=== PATIENT | male | born 1970 | race Caucasian/White ===

== ENCOUNTER 2018-09-21 13:47 | Emergency (ER) | payer MEDICAID, MEDICARE ==
[~2018-09-21] VITALS: Ht 180.3 cm; Wt 81.8 kg
[~2018-09-21 13:47] MED LIST: AMPH12.52 PO; EFAV1TAB4 PO; ESCI20TA29 PO; LITH300T16 PO; LORA-512 PO; VERA120T7 PO; WEL100T PO
[2018-09-21 15:12] LABS: CLARITY,URINE CLEAR (Clear); COLOR,URINE YELLOW (Yellow); GLUCOSE, URINE NEGATIVE (Neg); KETONES,URINE NEGATIVE (Neg); LEUKOCYTE ESTERASE ,URINE NEGATIVE (Neg); NITRITES, URINE NEGATIVE (Neg); OCCULT BLOOD,URINE NEGATIVE (Neg); PROTEIN,URINE NEGATIVE (Neg); UA COLLECTION TYPE CLN CATCH MIDSTREAM; UROBILINOGEN,URINE 0.2 E.U/dL (0.2-1.0)
[2018-09-21 15:20] LABS: BASOPHILS # (AUTO) 0.1 X10'3 (0-0.2); BASOPHILS % (AUTO) 1.1 % (0-1); EOSINOPHILS # (AUTO) 0.1 X10'3 (0-0.9); HEMATOCRIT 45.5 % (42.0-52.0); HEMOGLOBIN 15.4 g/dl (14.0-17.9); LYMPHOCYTES # (AUTO) 1.6 X10'3 (1.1-4.8); MEAN CORPUSCULAR HEMOGLOBIN 33.8 PG (27.0-31.0); MEAN CORPUSCULAR HGB CONC 33.9 g/dL (33.0-36.5); MEAN CORPUSCULAR VOLUME 99.8 FL (78-98); MEAN PLATELET VOLUME 8.1 FL (7.4-10.4); MONOCYTES # (AUTO) 0.3 X10'3 (0-0.9); MONOCYTES % (AUTO) 3.4 % (2-12); NEUTROPHILS # (AUTO) 7.3 X10'3 (1.8-7.7); NEUTROPHILS % (AUTO) 77.5 % (42-75); PLATELET COUNT 243 X10'3 (140-440); RED BLOOD COUNT 4.56 X10'6 (4.70-6.10); RED CELL DISTRIBUTION WIDTH 13.1 % (11.5-14.5); WHITE BLOOD COUNT 9.4 X10'3 (4.5-11.0)
[2018-09-21 15:34] LABS: ALANINE AMINOTRANSFERASE 29 U/L (12-78); ALBUMIN 4.1 G/DL (3.4-5.0); ALKALINE PHOSPHATASE 63 IU/L (46-116); ANION GAP 6 (8-16); ASPARTATE AMINO TRANSFERASE 20 U/L (10-37); BILIRUBIN,TOTAL 0.5 MG/DL (0.1-1.0); BLOOD UREA NITROGEN 12 MG/DL (7-18); BUN/CREATININE RATIO 10.3 (5.4-32.0); CALCIUM 9.6 MG/DL (8.5-10.1); CHLORIDE 103 MMOL/L (99-107); CREATININE 1.17 MG/DL (0.60-1.10); GLUCOSE 116 MG/DL (70-104); LIPASE 121 U/L (73-393); POTASSIUM 4.4 MMOL/L (3.5-5.1); SODIUM 138 MMOL/L (135-145); TOTAL CARBON DIOXIDE 28.6 MMOL/L (24-32); TOTAL PROTEIN 8.3 G/DL (6.4-8.2); eGFR 67 ML/MIN
[2018-09-21] MEDS ORDERED: metoclopramide 5 mg/ml inj IV ONE (15:45)
[2018-09-21] MEDS ORDERED: diphenhydrAMINE 50 mg/ml inj IV ONE (15:45)
[2018-09-21] MEDS ORDERED: normal saline 1000ML IV soln IVB ONE ×2 (15:45)
[2018-09-21] MEDS ORDERED: LORazepam 2 mg/ml vial IV ONE (15:45)
[2018-09-21] MEDS ORDERED: ONDA4TAB12 PO (16:22)
[2018-09-21 18:10] VITALS: BP 125/88
== END 2018-09-21 18:00 | disposition home or self-care (01) ==
LOC: ER 13:48
DX: R11.2 Nausea with vomiting, unspecified (principal); F17.210 Nicotine dependence, cigarettes, uncomplicated; F12.90 Cannabis use, unspecified, uncomplicated; Z79.899 Other long term (current) drug therapy
CPT/HCPCS: 36415; 80053; 81003; 83690; 85025; 85610; 96374; 96375; 99283; J1200; J2765; J7030

== ENCOUNTER 2021-10-08 18:41 | Emergency (ER) | payer MEDICARE ==
[~2021-10-08] VITALS: Ht 180.3 cm; Wt 79.5 kg
[~2021-10-08 18:41] MED LIST changes: +ONDA4TAB12 PO; +VERA120T19 PO; -VERA120T7 PO; +iohexol 350MG/ML 100ml bottle IV ONE
[2021-10-08] MEDS ORDERED: ondansetron/PF 4mg/2ml inj IV ONE (19:25)
[2021-10-08] MEDS ORDERED: morphine 10mg/ml inj. IV ONE (19:25)
--- NOTE | 2021-10-08 19:50 | NUR ---
Patient in CT
[2021-10-08 19:57] LABS: BASOPHILS # (AUTO) 0.1 X10'3 (0-0.2); BASOPHILS % (AUTO) 0.9 % (0-1); EOSINOPHILS # (AUTO) 0.1 X10'3 (0-0.9); EOSINOPHILS % (AUTO) 0.8 % (0-6); HEMATOCRIT 44.5 % (42.0-52.0); LYMPHOCYTES # (AUTO) 1.9 X10'3 (1.1-4.8); LYMPHOCYTES % (AUTO) 13.2 % (21-51); MEAN CORPUSCULAR HEMOGLOBIN 32.5 PG (27.0-31.0); MEAN CORPUSCULAR HGB CONC 33.7 g/dL (33.0-36.5); MEAN CORPUSCULAR VOLUME 96.6 FL (78-98); MEAN PLATELET VOLUME 7.9 FL (7.4-10.4); MONOCYTES # (AUTO) 0.7 X10'3 (0-0.9); MONOCYTES % (AUTO) 4.8 % (2-12); NEUTROPHILS # (AUTO) 11.4 X10'3 (1.8-7.7); NEUTROPHILS % (AUTO) 80.3 % (42-75); PLATELET COUNT 256 X10'3 (140-440); RED BLOOD COUNT 4.61 X10'6 (4.70-6.10); WHITE BLOOD COUNT 14.2 X10'3 (4.5-11.0)
[2021-10-08 20:13] LABS: ALANINE AMINOTRANSFERASE 47 U/L (12-78); ALBUMIN 3.8 G/DL (3.4-5.0); ALBUMIN/GLOBULIN RATIO 0.8 (1.1-1.5); ALKALINE PHOSPHATASE 77 IU/L (46-116); ANION GAP 9 (8-16); ASPARTATE AMINO TRANSFERASE 56 U/L (10-37); BILIRUBIN,TOTAL 0.4 MG/DL (0.1-1.0); BLOOD UREA NITROGEN 15 MG/DL (7-18); BUN/CREATININE RATIO 12.5 (5.4-32.0); CALCIUM 9.2 MG/DL (8.5-10.1); CHLORIDE 102 MMOL/L (99-107); GLUCOSE 101 MG/DL (70-104); POTASSIUM 4.4 MMOL/L (3.5-5.1); SODIUM 138 MMOL/L (135-145); TOTAL CARBON DIOXIDE 27.1 MMOL/L (24-32); TOTAL PROTEIN 8.5 G/DL (6.4-8.2); eGFR 64 ML/MIN
[2021-10-08 20:18] LABS: CREATINE KINASE 384 U/L (39-308); ETHANOL < 0.010 GM/DL (0.0-0.010)
[2021-10-08] MEDS ORDERED: morphine 4 MG/ML inj SYRINge IV ONE (21:45)
[2021-10-09] MEDS ORDERED: CYCL-394 PO (00:44)
[2021-10-09] MEDS ORDERED: MORP15TA PO (00:44)
[2021-10-09] MEDS ORDERED: cyclobenzaprine 10mg tablet PO ONE (00:50)
[2021-10-09] MEDS ORDERED: morphine 4 MG/ML inj SYRINge IV ONE (00:50)
[2021-10-09] MEDS ORDERED: bacitracin 15gm ointment TP ONE (01:35)
[2021-10-09 01:45] VITALS: BP 124/81
== END 2021-10-09 01:49 | disposition home or self-care (01) ==
LOC: ER 18:43
DX: S32.049A Unspecified fracture of fourth lumbar vertebra, initial encounter for closed fracture (principal); S01.01XA Laceration without foreign body of scalp, initial encounter; S70.01XA Contusion of right hip, initial encounter; S80.02XA Contusion of left knee, initial encounter; S70.312A Abrasion, left thigh, initial encounter; S80.211A Abrasion, right knee, initial encounter; R07.89 Other chest pain; Z21 Asymptomatic human immunodeficiency virus [HIV] infection status; F12.90 Cannabis use, unspecified, uncomplicated; Z72.89 Other problems related to lifestyle; Z79.899 Other long term (current) drug therapy; W22.11XA Striking against or struck by driver side automobile airbag, initial encounter; Y93.89 Activity, other specified; Y92.89 Other specified places as the place of occurrence of the external cause; Y99.8 Other external cause status; S09.90XA Unspecified injury of head, initial encounter
CPT/HCPCS: 36415; 70450; 70486; 71260; 72125; 74177; 80053; 80320; 82550; 84484; 85025; 93005; 96374; 96375; 96376; 99285; J2270; J2274; J2405; J3490; L0172; Q9967; A6258

== ENCOUNTER 2023-04-12 02:33 | Observation (INO) | payer MEDICAID, MEDICARE ==
[~2023-04-12] VITALS: Ht 180.3 cm; Wt 93.1 kg
[~2023-04-12 02:33] MED LIST changes: -iohexol 350MG/ML 100ml bottle IV ONE
[2023-04-12] MEDS: normal saline 1000ml 1,000 ML IV ONE (03:29)
[2023-04-12] MEDS: diltiazem 5mg/ml 5ml inj. IV ONE ×3 (03:29→05:05)
[2023-04-12] MEDS: aspirin 81mg tab.chew PO ONE (03:29)
[2023-04-12 03:58] LABS: PROTHROMBIN TIME 10.3 SECONDS (9.0-12.0)
[2023-04-12 04:00] LABS: BASOPHILS # (AUTO) 0.1 X10'3 (0-0.2); BASOPHILS % (AUTO) 0.8 % (0-1); EOSINOPHILS # (AUTO) 0.2 X10'3 (0-0.9); EOSINOPHILS % (AUTO) 1.7 % (0-6); HEMATOCRIT 40.3 % (42.0-52.0); HEMOGLOBIN 13.5 g/dl (14.0-17.9); LYMPHOCYTES # (AUTO) 2.7 X10'3 (1.1-4.8); LYMPHOCYTES % (AUTO) 26.1 % (21-51); MEAN CORPUSCULAR HEMOGLOBIN 30.6 PG (27.0-31.0); MEAN CORPUSCULAR HGB CONC 33.4 g/dL (33.0-36.5); MEAN CORPUSCULAR VOLUME 91.6 FL (78-98); MEAN PLATELET VOLUME 8.1 FL (7.4-10.4); MONOCYTES # (AUTO) 0.9 X10'3 (0-0.9); MONOCYTES % (AUTO) 8.8 % (2-12); NEUTROPHILS # (AUTO) 6.5 X10'3 (1.8-7.7); NEUTROPHILS % (AUTO) 62.6 % (42-75); PLATELET COUNT 236 X10'3 (140-440); RED CELL DISTRIBUTION WIDTH 14.9 % (11.5-14.5); WHITE BLOOD COUNT 10.3 X10'3 (4.5-11.0)
[2023-04-12 04:18] LABS: ALBUMIN 3.2 G/DL (3.4-5.0); ANION GAP 11 (8-16); BLOOD UREA NITROGEN 14 MG/DL (7-18); BUN/CREATININE RATIO 11.9 (10.0-20.0); CALCIUM 8.8 MG/DL (8.5-10.1); CHLORIDE 106 MMOL/L (99-107); CREATININE 1.18 MG/DL (0.60-1.10); GLUCOSE 170 MG/DL (70-104); MAGNESIUM 2.2 MG/DL (1.5-2.4); POTASSIUM 3.9 MMOL/L (3.5-5.1); PRO BRAIN NATRIURETIC PEPTIDE 400 PG/ML (0-125); SODIUM 140 MMOL/L (135-145); TOTAL CARBON DIOXIDE 22.8 MMOL/L (24-32); eCRCL 77 ML/MIN; eGFR 65 ML/MIN
[2023-04-12] MEDS: acetaminophen 325mg tablet PO ONE (04:19)
[2023-04-12] MEDS: diltiazem-NS 100mg/100ml 100 ML IV SCH (04:20)
[2023-04-12] MEDS: ketorolac trometh. 30mg/ml inj. IV ONE (04:56)
[2023-04-12] MEDS: phenylephrine 10mg/ml inj. -priapism dosing SQ ONE (06:00)
[2023-04-12] MEDS: LIDOCAINE 1%/EPI 1:100,000 inj. 10 ML multi-dose vial IJ ONE (06:00)
[2023-04-12] MEDS: HYDROmorphone 1 mg/ml syringe IV ONE (06:54)
[2023-04-12] MEDS: metoprolol tartrate 50mg tablet PO STA (07:33)
[2023-04-12] MEDS ORDERED: potassium Cl 20 mEq SR tablet PO PRN ×2 (09:50)
[2023-04-12] MEDS ORDERED: LORazepam 1 MG tablet PO PRN (09:50)
[2023-04-12] MEDS ORDERED: acetaminophen 325mg tablet PO PRN (09:50)
[2023-04-12] MEDS ORDERED: potassium Cl 40MEQ/1/2NS 520ml 520 ML IV PRN (09:50)
[2023-04-12] MEDS ORDERED: LORazepam 2 mg/ml vial IV PRN (09:50)
[2023-04-12] MEDS ORDERED: magnesium hydroxide 30ml (MOM) UD suspension PO PRN (09:50)
[2023-04-12] MEDS: normal saline 1000ml 1,000 ML IV SCH (09:50)
[2023-04-12] MEDS ORDERED: magnesium 4gm in 100ml NS 100 ML IV PRN (09:50)
[2023-04-12] MEDS ORDERED: ondansetron/PF 4mg/2ml inj IV PRN (09:50)
[2023-04-12] MEDS ORDERED: magnesium 2GM in 50ml NS 50 ML IV PRN (09:50)
[2023-04-12] MEDS ORDERED: HYDROcodone/acetaminophen 5mg/325mg tablet PO PRN (09:50)
[2023-04-12] MEDS ORDERED: bisacodyl 10mg suppository rectal RC PRN (09:50)
[2023-04-12] MEDS ORDERED: mag hydrox/Alum hydrox/simeth 30ml oral suspension PO PRN (09:50)
[2023-04-12] MEDS ORDERED: magnesium Cl slow-release 64mg tablet PO PRN (09:50)
[2023-04-12 10:42] LABS: CHOL/HDL RATIO 3.5 (0.00-4.99); CHOLESTEROL 136 MG/DL (0-200); HDL CHOLESTEROL 39 MG/DL (35-60); LDL CHOLESTEROL 77 MG/DL (50-100); POTASSIUM 4.1 MMOL/L (3.5-5.1); TRIGLYCERIDES 90 MG/DL (20-135)
[2023-04-12 10:54] LABS: APTT 27 SECONDS (22-32); PROTHROMBIN TIME 10.4 SECONDS (9.0-12.0)
[2023-04-12 11:02] LABS: THYROID STIMULATING HORMONE 1.85 ulU/ml (0.34-4.50)
[2023-04-12] MEDS: HYDROcodone/acetaminophen 10/325mg tab PO PRN (14:36)
[2023-04-12] MEDS: HYDROmorphone inj. 0.5 MG/0.5 ML DISP.SYRIN IV PRN (15:43)
[2023-04-12] MEDS: K and/or MAG REPLACEMENT MC SCH (19:33)
[2023-04-12] MEDS: docusate sod 100mg capsule PO SCH (19:56)
[2023-04-12] MEDS: metoprolol tartrate 50mg tablet PO SCH (19:57)
[2023-04-12] MEDS ORDERED: temazepam 15mg capsule PO PRN (21:00)
[2023-04-12 22:50] VITALS: BP 108/54; PULSE 72; RESP 17; TEMP 98.5; O2SAT 93
[2023-04-13 06:00] VITALS: BP 92/56; PULSE 91; RESP 11; TEMP 99.9; O2SAT 96
[2023-04-13] MEDS: acetaminophen 325mg tablet PO PRN (06:30)
[2023-04-13 07:32] LABS: HEMATOCRIT 38.2 % (42.0-52.0); HEMOGLOBIN 12.6 g/dl (14.0-17.9); MEAN CORPUSCULAR HEMOGLOBIN 30.8 PG (27.0-31.0); MEAN CORPUSCULAR HGB CONC 32.9 g/dL (33.0-36.5); MEAN CORPUSCULAR VOLUME 93.4 FL (78-98); MEAN PLATELET VOLUME 8.4 FL (7.4-10.4); RED BLOOD COUNT 4.09 X10'6 (4.70-6.10); RED CELL DISTRIBUTION WIDTH 14.8 % (11.5-14.5); WHITE BLOOD COUNT 10.1 X10'3 (4.5-11.0)
[2023-04-13 07:45] LABS: ALBUMIN 3.2 G/DL (3.4-5.0); ANION GAP 9 (8-16); BLOOD UREA NITROGEN 19 MG/DL (7-18); BUN/CREATININE RATIO 15.7 (10.0-20.0); CALCIUM 9.3 MG/DL (8.5-10.1); CHLORIDE 104 MMOL/L (99-107); CREATININE 1.21 MG/DL (0.60-1.10); GLUCOSE 111 MG/DL (70-104); POTASSIUM 4.7 MMOL/L (3.5-5.1); SODIUM 136 MMOL/L (135-145); TOTAL CARBON DIOXIDE 22.9 MMOL/L (24-32); eCRCL 75 ML/MIN; eGFR 63 ML/MIN
[2023-04-13 08:39] LABS: PLATELET COUNT 107 X10'3 (140-440)
[2023-04-13 11:00] VITALS: BP 114/62; PULSE 80; RESP 15; TEMP 97.5; O2SAT 98
[2023-04-13] MEDS ORDERED: HYDR-3972 PO (11:46)
[2023-04-13] MEDS ORDERED: METO50TA16 PO (11:46)
== END 2023-04-13 13:29 | disposition home or self-care (01) ==
LOC: ER 02:34 → ED HOLD 09:56 → PCU 3S 22:50
PROVIDERS: ADMIT Family Medicine; ATTEND Family Medicine
DX: I48.20 Chronic atrial fibrillation, unspecified (principal); N48.30 Priapism, unspecified; F15.10 Other stimulant abuse, uncomplicated; N17.0 Acute kidney failure with tubular necrosis; J44.9 Chronic obstructive pulmonary disease, unspecified; I10 Essential (primary) hypertension; F32.A Depression, unspecified; Z79.899 Other long term (current) drug therapy
CPT/HCPCS: 36415; 71045; 80048; 80061; 83735; 83880; 84132; 84443; 84484; 85025; 85027; 85610; 85730; 93005; 93306; 96361; 96365; 96366; 96375; 96376; 99291; 99292; A6258; G0378; J1170; J1885; J3490; J7030

== ENCOUNTER 2024-12-22 01:41 | Emergency (ER) | payer MEDICAID, OTHER ==
[~2024-12-22] VITALS: Ht 180.3 cm; Wt 90.0 kg
[~2024-12-22 01:41] MED LIST changes: +METO50TA16 PO; +ONDA-243 PO; -ONDA4TAB12 PO; -VERA120T19 PO
--- NOTE | 2024-12-22 01:47 | ELECTROCARDIOGRAPH REPORT ---
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
[2024-12-22 02:00] LABS: MEAN PLATELET VOLUME 8.5 FL (7.4-10.4); RED CELL DISTRIBUTION WIDTH 13.7 % (11.5-14.5)
[2024-12-22] MEDS: metoprolol tartrate 1mg/ml inj IV ONE (02:05)
[2024-12-22] MEDS: normal saline 1000ml 1,000 ML IV ONE (02:17)
[2024-12-22] MEDS: diltiazem 5mg/ml 5ml inj. IV ONE (02:18)
[2024-12-22 02:21] LABS: CREATININE 1.24 MG/DL (0.60-1.10); PRO BRAIN NATRIURETIC PEPTIDE 276 PG/ML (0-125); TOTAL CARBON DIOXIDE 27.1 MMOL/L (24-32); eCRCL 72 ML/MIN; eGFR 61 ML/MIN
--- NOTE | 2024-12-22 02:35 | RADIOLOGY REPORT ---
CHEST RADIOGRAPH Indication: CP Technique: Single frontal view of the chest was obtained COMPARISON: DI CHEST,SINGLE VIEW on DOS: 04/12/23, CT CHEST ABDOMEN PELVIS on DOS: 10/08/21 FINDINGS: Lines and Tubes: None Lungs: Clear Pleura: No effusion. No pneumothorax. Cardiomediastinal contours: Unremarkable Bones: Unremarkable IMPRESSION: 1. No acute disease.
--- NOTE | 2024-12-22 02:45 | ELECTROCARDIOGRAPH REPORT ---
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
--- NOTE | 2024-12-22 02:45 | Physician Documentation ---
History of Present Illness ~ Chief Complaint: Chest Pain Stated Complaint: CHEST PAINS Time Seen by MD: 01:58 HPI 54 year old male reports racing heart rate and chest pain tonight. Has history of afib/aflutter but has not taken his beta mare for some time. Denies fever,N/V/D, drug use, cough/cold/flu symptoms. Medication Reconciliation Allergies: Coded Allergies: No Known Allergies (Unverified , 04/12/23) Scheduled Amphet Asp/Amphet/D-Amphet* (Adderal*), 12.5 MG PO DAILY, (Reported) Bupropion Hcl* (Wellbutrin*), 200 MG PO BID, (Reported) Efavirenz/Emtricitab/Tenofovir (Atripla Tablet), 1 EACH PO DAILY, (Reported) Escitalopram Oxalate* (Lexapro*), 20 MG PO DAILY, (Reported) [place] Carbonate (Lithobid), 300 MG PO BID, (Reported) Loratadine* (Alavert*), 10 MG PO DAILY, (Reported) Metoprolol Tartrate (Metoprolol Tartrate), 50 MG PO BID Scheduled PRN ONDANSETRON ODT 4mg tablet (Ondansetron Odt), 1 TABLET PO Q6H PRN for nausea/vomiting Past Medical History Past Medical History: HIV, Depression Past Surgical History: noncontributory Alcohol Use: Occasionally Drug Use: marijuana Lives In: Home Occupation: employed Review of Systems All Other Systems at this time: Reviewed and Negative Physical Exam Vital Signs: RN Vital Signs have been reviewed: Yes, Temperature: 98.5, Source: Oral, Heart Rate: 91, Respiratory Rate: 16, BP: 130/85, Pulse Oximetry: 96, Weight: 90.000 Physical Exam HEENT: PERRL, moist oral mucosa, EOMI Pulmonary: No respiratory distress CTAB Cardiac: regular tachycardia, no murmur, rub or gallop MSK: no deformity Skin: w/d/i, no rash Neuro: alert, nonfocal Psych: normal affect Progress Results/Orders Results/Orders Orders - ERIC TO MD Chest,Single View (12/22/24 01:42) Monitor (12/22/24 01:42) Saline Lock (12/22/24 01:42) Oxygen (12/22/24 01:42) Hs Troponin I W Calculations (12/22/24 03:42) Hs Troponin I W Calculations (12/22/24 04:42) Drug Screen, Urine (12/22/24 02:02) Urinalysis, Cult If Indicated (12/22/24 02:02) Normal Saline 1000ml (0.9% Sodium Chlori (12/22/24 02:05) Completed Orders - ERIC TO MD Chest,Single View (12/22/24 01:42) Cbc/Diff (12/22/24 01:42) BMP (12/22/24 01:42) PBNP (12/22/24 01:42) Electrocardiogram (12/22/24 01:42) Hs Troponin I W Calculations (12/22/24 01:42) Metoprolol Tartrate Inj (Lopressor Iv) (12/22/24 02:05) Diltiazem Iv (Cardizem Iv 5mg/Ml Inj.) (12/22/24 02:10) Medications Received in ER Medications (Trade) Dose Ordered Sig/Amauri Route PRN Reason Start Time Stop Time Status Last Admin Dose Admin (Lopressor IV) 5 mg ONCE ONCE IV 12/22/24 02:05 12/22/24 02:06 DC 12/22/24 02:05 5 MG Sodium Chloride 1,000 ml @ 1,000 mls/hr ONCE ONCE IV 12/22/24 02:05 12/22/24 03:04 12/22/24 02:17 1,000 MLS/HR (Cardizem IV 5mg/ ml inj.) 10 mg ONCE ONCE IV 12/22/24 02:10 12/22/24 02:11 DC 12/22/24 02:18 10 MG Vital Signs 12/22/24 12/22/24 12/22/24 12/22/24 01:43 02:00 02:03 02:05 Temp 98.5 Pulse 166 135 164 Resp 18 16 18 B/P (MAP) 133/94 141/94 (110) Pulse Ox 99 99 12/22/24 12/22/24 12/22/24 12/22/24 02:10 02:16 02:18 02:22 Pulse 170 135 128 91 Resp 16 16 B/P (MAP) 134/82 (99) 130/85 130/85 (100) Pulse Ox 97 96 Laboratory Tests Test 12/22/24 01:48 White Blood Count 11.2 H Red Blood Count 4.60 L Hemoglobin 14.8 Hematocrit 42.5 Mean Corpuscular Volume 92.4 Mean Corpuscular Hemoglobin 32.0 H Mean Corpuscular Hemoglobin Concent 34.7 Red Cell Distribution Width 13.7 Platelet Count 216 Mean Platelet Volume 8.5 Neutrophils (%) (Auto) 69.0 Lymphocytes (%) (Auto) 19.9 L Monocytes (%) (Auto) 9.2 Eosinophils (%) (Auto) 1.0 Basophils (%) (Auto) 0.9 Neutrophils # (Auto) 7.8 H Lymphocytes # (Auto) 2.2 Monocytes # (Auto) 1.0 H Eosinophils # (Auto) 0.1 Basophils # (Auto) 0.1 CBC Comment Sodium Level 132 L Potassium Level 3.9 Chloride Level 99 Carbon Dioxide Level 27.1 Anion Gap 6 L Blood Urea Nitrogen 14 Creatinine 1.24 H Estimated GFR/1.73 m2 61 BUN/Creatinine Ratio 11.3 Glucose Level 138 H Calcium Level 8.7 Troponin I High Sensitivity 13 Pro-B-Type Natriuretic Peptide 276 H Albumin 3.7 Chemistry Comments Medical Decision Making Additional information obtaine: N/A Findings 54 year old male initially appeared in sinus tachycardia, but was provided with IV metoprolol. He then slowed down and appeared to be in aflutter with RVR, then spontaneously cardioverted to normal sinus rhythm. Workup was otherwise negative and we will send him home with a refill of his beta mare. Return precautions discussed. Heart Score: [id number] Differential Dx:Considerations: Include: angina, gastritis, myocardial infarction, pericarditis, pancreatitis, pneumonia, pneumothorax, pulmonary embolus Additional Information Ddx includes sinus tachycardia, drug intoxication, afib/aflutter with RVR Departure Disposition: HOME / SELF CARE / HOMELESS Impression: Primary Impression: Atrial flutter Condition: Stable Discharge Instructions: Atrial Flutter Referrals: NO PRIMARY CARE PROVIDER (PCP) Education Educated: Patient, Family Educated regarding: diagnosis, treatment, prognosis, need for follow up Signature Scribe Signature: . Attestation: ERIC NO MD Dec 22, 2024 02:45
[2024-12-22] MEDS ORDERED: LIDOcaine 2% Viscous 15ml cup MM PRN (03:15)
[2024-12-22] MEDS: mag hydrox/Alum hydrox/simeth 30ml oral suspension PO ONE (03:24)
[2024-12-22] MEDS: ibuprofen tablet 400 MG TABLET PO ONE (03:53)
[2024-12-22] MEDS: HYDROcodone/acetaminophen 5mg/325mg tablet PO ONE (04:10)
[2024-12-22] MEDS: LIDOcaine 2% Viscous 15ml cup MM ONE (04:12)
[2024-12-22 04:33] VITALS: BP 132/91; PULSE 70; RESP 12; TEMP 98.2; O2SAT 99
== END 2024-12-22 04:36 | disposition home or self-care (01) ==
LOC: ER 01:42
DX: I48.92 Unspecified atrial flutter (principal); F32.A Depression, unspecified; Z79.899 Other long term (current) drug therapy
CPT/HCPCS: 36415; 71045; 80048; 83880; 84484; 85025; 93005; 96361; 96374; 96375; 99285; J3490; J7030